=== PATIENT | male | born 1965 | race Caucasian/White ===

== ENCOUNTER → 2016-10-23 | Outpatient (CLI) | payer BC ==
[~2016-10-23] MED LIST: ACID REDUCER150 MG PO; ALTACE PO; ANEXSIA 7.5/3251 TA1 PO; ASPIRIN PO; ASPIRIN81 M1 PO; BACLOFEN20 MG PO; CRESTOR PO; FLEXERIL PO; FLEXERIL10 MG PO; FOLIC ACID PO; LOW DOSE ASPIRI81 M1 PO; MULTI-VITAMIN1 EAC1 PO; NEURONTIN300 MG PO; NEXIUM PO; NORVASC PO; OXYCODON HCL-1 UDTAB PO; PLAVIX PO; PROTONIX PO; RANEXA500 MG PO; TOPROL XL PO; WELLBUTRIN SR PO; ZANAFLEX4 M1 PO; ZOLOFT50 MG PO
--- NOTE | ~2016-10-23 | US77 ---
[facility] A Service of [facility] & [facility] RADIOLOGY TEXT RESULTS PATIENT: BRII DOWNS LOCATION: [facility] : 61 UNIT #: [id number] AGE: [address]: Deng Espinosa MD SEX: M ORDER DR: [id number] [facility] [address] [place], [place] [address] [id number] O MR#: [id number] Acc #: [id number] NAME: BRII DOWNS. : 1965 SEX: M STUDY DATE/TIME: 10/23/2016 13:09 UNIT: [facility] ROOM: STUDY DESCRIPTION: US Kidney Bilateral Complete Attending Physician: Deng Espinosa M.D. Referring Physician: Deng Espinosa M.D. Ordering Physician: Deng Espinosa M.D. Primary Care Physician: Dane Diaz M.D. MEDICAL IMAGING REPORT This report is preliminary unless electronic signature is present EXAM Renal ultrasound bilateral 10/23/2016 INDICATIONS Chronic renal disease (stage II). Hypertension. TECHNIQUE Sonographic imaging of the kidneys was performed bilaterally. There are no comparisons. FINDINGS Right kidney measures 11.8 x 5.4 x 5.6 cm and the left 9.6 x 5.4 x 4.6 cm. No hydronephrosis or shadowing stone on either side. There is a bilobed cyst in the right kidney with the largest moiety measuring up to about 3.2 cm. The smaller moiety measures up to about 1.3 cm. Additional benign cyst measures 3.4 cm on the right. There is a benign appearing cyst in the left kidney measuring 2.8 cm near the lower pole. IMPRESSION 1. No hydronephrosis or shadowing stone on either side. 2. Benign-appearing renal cysts. 3. The bladder is distended. Dictated by... Eliseo Ramos M.D. THIS IS AN ELECTRONICALLY VERIFIED REPORT Eliseo Ramos M.D. at 10/26/2016 2:09 PM Ke TD: 10/23/2016 21:28 [facility] A Service of [facility] & [facility] RADIOLOGY TEXT RESULTS PATIENT: BRII DOWNS LOCATION: [facility] #: [id number] : [birth year] UNIT #: [id number] AGE: [address]: Deng Espinosa MD SEX: M ORDER DR: JOB #: [id number] MEDICAL IMAGING REPORT Page 1 of 1 COPY
== END | disposition home or self-care (01) ==
LOC: CGUS 12:43
DX: I12.9 Hypertensive chronic kidney disease with stage 1 through stage 4 chronic kidney disease, or unspecified chronic kidney disease (principal); N18.2 Chronic kidney disease, stage 2 (mild)
CPT/HCPCS: 76770